=== PATIENT | male | born 1980 | race Caucasian/White ===

== ENCOUNTER 2023-12-17 06:11 | Day surgery (SDC) | payer BC, SELFPAY ==
[2023-12-17] VITALS (13 sets, daily range): BP systolic 117–158; BP diastolic 83–107; PULSE 54–88; RESP 16–18; TEMP 36.1–36.6; O2SAT 94–99; BMI 33.5
[2023-12-17] MEDS: LACTATED RINGERS 1000 ML 1,000 ML 100 ML IV (06:30)
[2023-12-17] MEDS: SODIUM CHLORIDE 0.9 % (FLUSH) 10 ML SYRINGE IVF (06:30)
--- NOTE | 2023-12-17 07:34 | W.PM.H&PU ---
History & Physical Update History & Physical Update H&P Reviewed and patient assessed: No changes noted
[2023-12-17] MEDS: CEFAZOLIN 2 GM INJ IVP (07:56)
--- NOTE | 2023-12-17 08:50 | W.ANESCHARGE ---
Anesthesia Charges Start Date/Time Anesthesia Start Date: 12/17/23 Anesthesia Start Time: 07:33 Stop Date/Time Anesthesia Stop Date: 12/17/23 Anesthesia Stop Time: 10:03
[2023-12-17] MEDS: BUPIVACAINE 0.25% 30 ML INJECTION (09:35)
--- NOTE | 2023-12-17 09:56 | PM.GSPRC ---
Operative Note Date of procedure: 12/17/23 Pre-op diagnosis: Bilateral inguinal hernias Post-op diagnosis: Same Type of Procedure: Laparoscopic bilateral inguinal hernia repair with placement of mesh Indications: Patient is a 43-year-old male who presented to clinic with symptomatic hernias. Different treatment options were reviewed, please see consultation note for full discussion. Risks and benefits of operative intervention were discussed at length with the patient. Risks included but was not limited to: Bleeding, infection, risk of damage to surrounding structures, possible need for additional procedures, possible need to convert to an open operation, risk of recurrence and postoperative complications such as pneumonia, pulmonary emboli or [place]. All questions and concerns were addressed with the patient agreeing to proceed. Procedure Description: After discussing the risks and benefits of the procedure, the patient signed informed consent.? The operative site was marked and the patient was brought to the operating room and placed on the operating table in supine position.? Care was taken to pad the patient's pressure points.?? The patient was then intubated by anesthesia.?? The operative site was then prepped and draped in the usual sterile fashion.? A time-out was then performed. A curvilinear incision was made below the umbilicus. Dissection was carried down to subcutaneous tissue until the anterior rectus fascia was encountered. This was incised off the midline. The rectus muscles were then retracted exposing the posterior fascia. A space maker port with a dissecting balloon was then introduced. The preperitoneal space was inflated under direct vision. The balloon was then removed and the preperitoneal space insufflated. A 10 mm 30 degree scope was then advanced and the area was surveyed for bleeding. Dissection began on the right side. Balbir's ligament and the pubic bone was exposed medially. Following this dissection was carried out laterally. A medium-sized direct and indirect defect was noted. The sac was dissected free from the cord structures using a combination of sharp and blunt dissection. During this portion of the dissection a small tear was made in the peritoneum. This was closed with several 5 mm clips. The cord structures were circumferentially dissected out. Incarcerated preperitoneal fat within the direct hernia was reduced. Once both hernias were completely reduced, a Paritek mesh for the appropriate side was placed into the abdomen. This was positioned around the cord structures. A Tacker was used to attach the mesh medially at Balbir's ligament. Attention was turned to the opposite side where a small direct defect was noted and repair was completed in the same fashion. Once this was completed the preperitoneal space desufflated under direct vision. The ports were removed. At the umbilical incision the posterior fascia was grasped and incised with Metzenbaum scissors to evacuate the CO2 within the abdomen. The posterior fascia was closed with a single 3-0 vicryl. The fascia from the infraumbilical port was closed with 0 Vicryl. The skin incisions were closed with absorbable subcuticular suture. Sterile dressings were then applied. The scrotum was examined to ensure that both testicles were down. Instrument sponge and needle counts were correct at the end of the case. Findings: A medium-sized direct hernia on the right, indirect hernia on the right. Small direct hernia on the left. Anesthesia: GETA Surgeon: Verna Martinez MD Estimated blood loss (mL): 5 Condition: stable Disposition: PACU
--- NOTE | 2023-12-17 10:03 | W.ANESCHARGE ---
Anesthesia Charges Start Date/Time Anesthesia Start Date: 12/17/23 Anesthesia Start Time: 07:33 Stop Date/Time Anesthesia Stop Date: 12/17/23 Anesthesia Stop Time: 10:03
== END 2023-12-17 11:57 | disposition home or self-care (01) ==
PROVIDERS: PCP Family Medicine; Visit Provider Surgery
PROC: (CPT 49650; principal; 2023-12-17 07:30)
DX: K40.20 Bilateral inguinal hernia, without obstruction or gangrene, not specified as recurrent (principal)
CPT/HCPCS: 49650; 00860; C1781; J0665; J0690; J1100; J1170; J1630; J1885; J2405; J2704; J2710; J3010; J7120